=== PATIENT | female | born 1945 | race Caucasian/White ===

== ENCOUNTER → 2017-04-21 | Outpatient (CLI) | payer MEDICARE, OTHER ==
[~2017-04-21] MED LIST: ACETAMINOPHEN PO; ADVAIR 2501 DISK W/D PO; AMLODIPINE BESYL5 MG PO; BUSPAR PO; BUSPAR15 M3 PO; BUSPAR15 MG PO; BUSPIRONE HCL10 MG PO; CALCIUM + D 6001 TA1 PO; CRESTOR PO; CRESTOR10 MG PO; CYMBALTA PO; CYMBALTA30 MG PO; DULOXETINE HCL30 MG PO; FISH OIL500 MG PO; FLEXERIL10 M1 PO; FLONASE 0.05% N16 G1; FLUTICASONE NS; HYDROCODON-ACE1 EAC4 PO; HYDROCODON-ACE1 EAC5 PO; LEVAQUIN PO; LEVAQUIN750 M1 PO; LISINOPRIL PO; LISINOPRIL10 MG PO; LYRICA PO; LYRICA100 MG PO; MOBIC PO; MONTELUKAST SOD10 MG PO; NEXIUM PO; NORCO 10-325 TA1 TAB PO; NORCO 10/3251 TAB PO; PREDNISONE PO; PRILOSEC40 MG PO; PROAIR HFA8.5 GM IH; REQUIP0.5 MG PO; ROPINIROLE HCL0.5 MG PO; SINGULAIR PO; SPIRIVA18 MCG INH; TAMIFLU75 M1 PO; TOPROL XL 50 MG50 MG PO; TRAZODONE HCL100 MG PO; TRAZODONE PO; TUDORZA PRESS400 MCG IH; VITAMIN B12-FO1 EACH PO; VOLTAREN50 MG PO; ZOFRAN PO
--- NOTE | ~2017-04-21 | MY29 ---
[facility] A Service of [facility] RADIOLOGY TEXT RESULTS PATIENT: CARLOS GRACIA LOCATION: [facility] : 47 UNIT #: [id number] AGE: [address]: Eloina Yu SEX: F ORDER DR: [id number] [facility] [address] [place], [place] [address] [id number] O MR#: [id number] Acc #: [id number] NAME: CARLOS GRACIA : 1945 SEX: F STUDY DATE/TIME: 04/21/2017 14:35 UNIT: [facility] ROOM: STUDY DESCRIPTION: MY YAJAIRA SCREENING W/ CAD BILAT Attending Physician: Eloina Yu A.P.R.N. Ordering Physician: Eloina Yu A.P.R.N. Primary Care Physician: Eloina Yu A.P.R.N. MEDICAL IMAGING REPORT This report is preliminary unless electronic signature is present EXAM Digital screening mammogram, 04/21/2017, [facility]. HISTORY 72-year-old woman; no risk elevation. Annual screening. COMPARISON Outside mammograms now available date 07/24/2010, 09/15/2011, 11/16/2011, and 11/30/2012 from [facility]. FINDINGS Digital imaging of each breast was completed utilizing a two-view examination of each breast in craniocaudal and mediolateral-oblique projections. Review and interpretation of digital mammograms include a second review in conjunction with FDA-approved CAD device. There is a normal parenchymal presentation bilaterally consistent with the patient's age. There are no breast masses imaged and no parenchymal asymmetry is visualized. There are no suspicious microcalcifications and I see no focal architectural disturbance. IMPRESSION Negative screening digital mammogram. One-year followup recommended. Patients over the age of 40 are entered into a reminder system with target due date for the next mammogram. A result letter will also be sent to the patient. BIRADS: 1 Negative [facility] A Service [facility] RADIOLOGY TEXT RESULTS PATIENT: CARLOS GRACIA LOCATION: [facility] : 47 UNIT #: [id number] AGE: [address]: Eloina Yu SEX: F ORDER DR: Dictated by... Ab Moraes M.D. THIS IS AN ELECTRONICALLY VERIFIED REPORT Ab Moraes M.D. at 04/23/2017 8:03 AM MIRANDA/brian TD: 04/22/2017 16:04 JOB #: [id number] MEDICAL IMAGING REPORT Page 1 of 1 COPY
== END | disposition home or self-care (01) ==
LOC: CWCC 14:10
DX: Z12.31 Encounter for screening mammogram for malignant neoplasm of breast (principal)
CPT/HCPCS: G0202